=== PATIENT | female | born 1985 | race Hispanic/Latino ===

== ENCOUNTER 2020-12-06 08:03 | Day surgery (SDC) | payer BC ==
--- NOTE | 2020-11-30 16:53 | RAD REPORT ---
EXAM DESCRIPTION: Jazmyn Rich (2 Views)11/30/2020 4:45 pm CLINICAL HISTORY: Pre op COMPARISON: None FINDINGS: The lungs appear clear of acute infiltrate. The heart is normal size IMPRESSION: No acute abnormalities displayed
[2020-11-30 17:27] LABS: ALT/SGPT 30 U/L (12-78); AST/SGOT 25 U/L (15-37); Albumin 3.9 g/dL (3.4-5.0); Alkaline Phosphatase 85 U/L (45-117); Amylase 96 U/L (25-115); BUN Blood Urea Nitrogen 11 mg/dL (7-18); Bicarbonate 29 mmol/L (21-32); Bilirubin Direct < 0.1 mg/dL (0-0.2); Bilirubin Total 0.3 mg/dL (0.2-1.0); Glucose Level 68 mg/dL (74-106); Potassium 3.7 mmol/L (3.5-5.1); Protein, Total 7.6 g/dL (6.4-8.2); Sodium Level 143 mmol/L (136-145)
[2020-11-30 17:43] LABS: Absolute Lymphocytes (CBC) 2.4 K/uL (0.7-4.9); Basophils % 0.6 % (0-1.3); Hematocrit 40.4 % (36.0-45.0); Lymphocytes % 38.1 % (15.3-44.8); MPV 10.9 fL (7.6-11.3); RBC Red Blood Cell Count 4.68 M/uL (3.86-4.86)
--- NOTE | 2020-12-02 13:31 | EKG ---
Test Date: 2020-11-30 Test Time: 16:16:28 Room Service Associate: HA MEASUREMENT RESULTS: Intervals: Rate: 63 LA: 130 QRSD: 74 QT: 380 QTc: 388 [place]: P: 72 LA: 130 QRS: 14 T: 56 INTERPRETIVE STATEMENTS: Normal sinus rhythm Low voltage QRS Borderline ECG No previous ECG available for comparison Electronically Signed On 12-02-20 13:28:31 CREDIT CASHIER by Kj Vargas
--- OUTSIDE RECORDS SUMMARY | 2020-12-06 08:31 | XMS REPORT ---
:1985 Author Organization [facility] Address [address] Mukherjee, [address] [place] [address] Care Team Providers Name Role Phone Chin Unavailable [phone] PROBLEMS Type Condition ICD9-CM [id number] Onset Condition SNOMED Code Notes Code Code Dates Status Problem Depression F32.9 Active 576880630 Problem Malaise and R53.81 Active 750015674 fatigue Problem Allergic rhinitis J30.9 Active 19967813 Problem Iron deficiency D50.8 Active 814182545 anemia secondary to inadequate dietary iron intake Problem Constipation, K59.00 Active 98607653 unspecified constipation type Problem Body mass index Z68.32 Active 963861864 [BMI] 32.0-32.9, adult Problem Vitamin D E55.9 Active 51781599 deficiency Problem Other obesity due 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 Active 780380000 to excess calories Problem Edema R60.9 Active 553291362 Problem Kidney stones N20.0 Active 21160917 Problem GERD without K21.9 Active 640186510 esophagitis Problem Calculus of K80.20 Active 76940745 gallbladder without cholecystitis without obstruction Problem Non-seasonal J30.89 Active 42311775 allergic rhinitis, unspecified trigger ALLERGIES No Known Allergies ENCOUNTERS from 1985 to 2020-11-13 Encounter Location Date Provider Diagnosis [facility] [address] Oct, Rohan Chin Con tinuous RUQ Family Medicine [address] [place], abdomin [place] pain R10.11 [place] [address] and [place] o f gallbladder wit hout cholecystitis w ithout obstruction K80 .20 IMMUNIZATIONS Vaccine Route Administration Date Status Afluria single dose IM Intramuscular Dec 08, 2019 Administere d Kenalog (Triamcinolone) IM Intramuscular March 29, 2020 Adminis tered Kenalog (Triamcinolone) IM Intramuscular Nov 26, 2018 Adminis tered SOCIAL HISTORY Tobacco Use: Social History Observation Description Date Details (start date - stop date) Never Smoker Sex Assigned At : Social History Observation Description Sex Assigned At Unknown Alcohol Screen Question Answer Notes Did you have a drink containing alcohol in Yes the past year? Points 2 Interpretation Negative How often did you have 6 or more drinks on Never (0 points) one occasion in the past year? How many drinks did you have on a typical 1 or 2 (0 points) day when you were drinking in the past year? How often did you have a drink containing Two to four times a month (2 points) alcohol in the past year? Tobacco Use/Smoking Question Answer Notes Are you a never smoker REASON FOR REFERRAL No Information VITAL SIGNS No information MEDICATIONS Medication SIG (Take, Route, Notes Start Date End Date Status Frequency, Duration) Ferrous Sulfate 325 (65 1 tablet Orally BID for Active Fe) MG 30 days Duexis 800-26.6 MG 1 tablet Orally Three Not-Taking times a day PRN PAIN for 30 day(s) Amitiza 24 MCG 1 capsule with food A ctive Orally Twice a day for 30 day(s) Montelukast Sodium 10 MG 1 tablet Orally Once a Active day for 30 day(s) Vitamin D 25 MCG (1000 1 tablet Orally Once a Active UT) day for 30 day(s) PROCEDURES No Information RESULTS No Results REASON FOR VISIT updated ins refer surgeon MEDICAL (GENERAL) HISTORY Type Description Date Medical History Iron deficiency anemia secondary to inad equate dietary iron intake Medical History Malaise and fatigue Medical History Edema Medical History Allergic rhinitis Medical History Depression Medical History Vitamin D deficiency Surgical History No Surgical history information Goals Section No Information Health Concerns No Information MEDICAL EQUIPMENT No Information MENTAL STATUS No Information FUNCTIONAL STATUS No Information ASSESSMENTS Encounter Date Diagnosis Assessment Notes Treatment Notes Treatm ent Clinical Notes Oct, Continuous RUQ abdominal pain (ICD-10 - R10.11) Oct, [place] of gallbladder without cholecystitis without obstruction (ICD-10 - K80.20) PLAN OF TREATMENT Medication Medication Name Sig Start Date Stop Date Amitiza 24 MCG 1 capsule with food Orally Twice a day for 30 day(s) Ferrous Sulfate 325 (65 Fe) MG 1 tablet Orally BID for 30 days Insurance Providers Payer Name Payer Payer Insured Name Patient Coverage Covera ge End Address Phone Relationship to Start Date Eliu e Insured [employer] [phone] Ros Schneider self 2016 and Ti [id number] [address] [place] [id number]
--- OUTSIDE RECORDS SUMMARY | 2020-12-06 08:31 | XMS REPORT | Continuity of Care Document ---
:1985 Author Organization [facility] t Address [address] [place] [address] Care Team Providers Name Role Phone Pcp, Does Not Have A Attending Clinician Lab, Fam Pob I Attending Clinician Unavailable Doctor Unassigned, Name Attending Clinician Unavailable Andi Noe MD Attending Clinician Problems This patient has no known problems. Allergies, Adverse Reactions, Alerts This patient has no known allergies or adverse reactions. Medications Ordered Filled Start Stop Current Ordering Indication Dosage Frequency Signature Comments Components Source Medication Medication Date Date Medication? Clinician (SIG) Name Name Montelukast Montelukast Yes Rohan [address] [facility] Sodium Sodium 5-13 [facility] Amitiza Amitiza 2019- No Rohan [address] [facility] 5-30 11-26 Chin with food [facility] Ferrous Ferrous Yes Rohan [address] [facility] Sulfate Sulfate [facility] Duexis Duexis Yes Rohan [facility] Vitamin D Vitamin D Yes Rohan [address] [facility] Immunizations Ordered Filled Immunization Date Status Comments Sourc e Immunization Name Name Piotr single dose Piotr single dose 2019-12-[address] [facility] Procedures This patient has no known procedures. Encounters Start End Encounter Admission Attending Care Care Encounter Source Date/Time Date/Time Type Type Clinicians Facility Department ID 2020-11-13 2020-11-13 [id number] 2020-09-28 2020-09-28 [facility] [id number] [facility] 2020-09-19 2020-09-19 [facility] [id number] [facility] 2020-08-23 2020-08-23 [facility] [id number] [facility] 2020-08-23 2020-08-23 [facility] [id number] [facility] 2020-06-11 2020-06-11 Telephone Pcp, TIKI [id number] 00:00:00 00:00:00 Patient LOULOU [id number] Does Not HOSPITAL 4.2.7.2.686 Have A [id number] 2020-06-09 2020-06-09 Laboratory Lab, Adc [facility] [id number] 14:00:29 14:20:29 Only Fam Pob I Health [id number] [place] 4.2.7.2.686 Professio [id number] nal 044 Office Building One 2020-06-09 2020-06-09 Letter Doctor TIKI [id number] 00:00:00 00:00:00 (Out) Unassigned, LOULOU [id number] [place] [facility] [id number] 2020-05-26 2020-05-26 [facility] [id number] [address] 10:00:00 10:00:00 t [place] - Drive [facility] Medicine l Medicine Outpati ent Clinics 2020-03-29 2020-03-29 [facility] [id number] 11:28:00 11:28:00 t [place] [employer] s - Drive [facility] l Medicine Outpati ent Clinics 2020-03-29 2020-03-29 [facility] [id number] 10:31:00 10:31:00 t [place] [employer] s - Drive [facility] l Medicine Outpati ent Clinics 2020-03-29 2020-03-29 [facility] [id number] 10:00:00 10:00:00 t [place] - Full Circle [employer] [facility] Medicine Outpati ent Clinics 2020-03-28 2020-03-28 [facility] [id number] 15:54:00 15:54:00 t [place] - [employer] [facility] l Medicine Outpati ent Clinics 2020-03-16 2020-03-16 [facility] [id number] 16:00:00 16:00:00 t [place] - [employer] [facility] l Medicine Outpati ent Clinics 2020-02-09 2020-02-09 [facility] [id number] 08:15:00 08:15:00 t [place] - Drive [facility] Medicine Outpati ent Clinics 2019-12-08 2019-12-08 [facility] [id number] 16:30:00 16:30:00 t [place] - Drive [facility] l Medicine Outpati ent Clinics 2019-09-29 2019-09-29 [facility] [id number] 16:15:00 16:15:00 t [place] [employer] s - Drive [facility] Medicine Outpati ent Clinics 2019-09-02 2019-09-02 [facility] [id number] 16:00:00 16:00:00 t [employer] s - Full Circle [employer] [facility] Medicine Outpati ent Clinics 2019-06-15 2019-06-[address] [facility] [id number] 09:29:50 08:49:58 Visit [facility] [id number] Andi [facility] 4.2.7.2.686 [facility] [id number] [facility] 204 2019-06-15 2019-06-15 Orders Doctor TIKI [id number] 00:00:00 00:00:00 Only Unassigned, LOULOU [id number] [place] [facility] [id number] 2019-06-07 2019-06-07 [facility] [id number] 15:20:00 15:20:00 t [employer] s - Full [employer] [facility] Outpati ent Clinics 2019-06-04 2019-06-04 Orders Doctor [place] [id number] 00:00:00 00:00:00 Only Unassigned, LOULOU [id number] [place] [facility] 4.2.7.2.686 [id number] 2019-05-25 2019-05-25 [facility] [id number] 08:16:00 08:16:00 t [employer] s - Full Circle [employer] [facility] Medicine Outpati ent Clinics 2019-05-21 2019-05-21 [facility] [id number] 13:00:00 13:00:00 t Specialty/U Jenny kes - Specialty rology [facility] a [facility] l Clinic Outpati ent Clinics 2019-05-14 2019-05-14 [facility] [id number] [facility] 11:24:00 11:24:00 t [place] s - [employer] [facility] Medicine Outpati ent Clinics 2019-03-22 2019-03-22 [facility] [id number] 16:40:00 16:40:00 t [place] s - [employer] [facility] l Medicine Outpati ent Clinics 2019-01-12 2019-01-12 [facility] [id number] [facility] 16:00:00 16:00:00 t [place] s - [employer] [facility] Medicine Outpati ent Clinics 2019-01-07 2019-01-07 [facility] [id number] 08:37:00 08:37:00 t [place] s - [employer] [facility] Medicine Outpati ent Clinics 2018-11-26 2018-11-26 [facility] [id number] 15:45:00 15:45:00 t [employer] s - Full Circle [employer] [facility] Medicine Outpati ent Clinics 2018-06-25 2018-06-25 [facility] [id number] 15:30:00 15:30:00 t [employer] s - Full [employer] [facility] Medicine Outpati ent Clinics 2018-03-23 2018-03-23 [facility] [id number] 11:12:00 11:12:00 t [employer] s - Full Circle [employer] [facility] Medicine Outpati ent Clinics Results This patient has no known results.
--- OUTSIDE RECORDS SUMMARY | 2020-12-06 08:31 | XMS REPORT ---
:1985 Author Organization [facility] Address [address] Mukherjee, [address] [place] [address] Care Team Providers Name Role Phone Chin Unavailable [phone] PROBLEMS Type Condition ICD9-CM [id number] Onset Condition SNOMED Code Notes Code Code Dates Status Problem Depression F32.9 Active 967966190 Problem Malaise and R53.81 Active 005823320 fatigue Problem Allergic rhinitis J30.9 Active 21884458 Problem Iron deficiency D50.8 Active 121195755 anemia secondary to inadequate dietary iron intake Problem Constipation, K59.00 Active 11662186 unspecified constipation type Problem Body mass index Z68.32 Active 590621895 [BMI] 32.0-32.9, adult Problem Vitamin D E55.9 Active 42448529 deficiency Problem Other obesity due E66.09 Active 310517389 to excess calories Problem Edema R60.9 Active 409072630 Problem Kidney stones N20.0 Active 19151494 Problem GERD without K21.9 Active 094907475 esophagitis Problem Calculus of K80.20 Active 61277885 gallbladder without cholecystitis without obstruction Problem Non-seasonal J30.89 Active 34984238 allergic rhinitis, unspecified trigger ALLERGIES No Known Allergies ENCOUNTERS from 1985 to 2020-09-19 Encounter Location Date Provider Diagnosis [facility] [address] [place] Sep, Rohan Chin Vit echevarria D deficiency Family Medicine [address], E55.9 [place] [address] gallbladder wi thout cholecystitis w ithout obstruction K80 .20 ; Iron deficiency anemia secondary to inadequate diet raina iron intake D50 .8 ; GERD without esophagitis K21 .9 ; Constipation, unspecified constipation ty pe K59.00 ; Malais e and fatigue R53.81 ; Acne vulgaris L70.0 ; Noncompliance w/medication tr eatment due to intermit use of medication Z91. 14 ; Other obesity d ue to excess calories E66.09 and Body mass i ndex [BMI] 32.0-32.9 , adult Z68.32 IMMUNIZATIONS Vaccine Route Administration Date Status Afluria [...] REASON FOR REFERRAL No Information VITAL SIGNS Height 62 in Sep, Weight 175 lbs Sep, BMI 32 kg/m2 Sep, MEDICATIONS Medication SIG (Take, Route, Start Date End Date Status Frequency, Duration) Ferrous Sulfate 325 (65 Fe) 1 tablet Orally BID for 30 Active MG days Duexis 800-26.6 MG 1 tablet Orally Three Not-Taking times a day PRN PAIN for 30 day(s) Amitiza 24 MCG 1 capsule with food Orally Active Twice a day for 30 day(s) Montelukast Sodium 10 MG 1 tablet Orally Once a day Active for 30 day(s) Vitamin D 25 MCG (1000 UT) 1 tablet Orally Once a day Active for 30 day(s) PROCEDURES No Information RESULTS No Results REASON FOR VISIT Follow up with lab/s MEDICAL (GENERAL) HISTORY Type Description Date Medical [...] STATUS No Information ASSESSMENTS Encounter Date Diagnosis Notes Sep, Vitamin D deficiency (ICD-10 - E55.9) Sep, Iron deficiency anemia secondary to inad equate dietary iron intake (ICD-10 - D50.8) Sep, Calculus of gallbladder without cholecys titis without obstruction (ICD-10 - K80.20) Sep, Noncompliance w/medication treatment due to intermit use of medication (ICD-10 - Z91.14) Sep, Body mass index [BMI] 32.0-32.9, adult ( ICD-10 - Z68.32) Sep, Other obesity due to excess calories (IC D-10 - E66.09) Sep, Constipation, unspecified constipation t ype (ICD-10 - K59.00) Sep, GERD without esophagitis (ICD-10 - K21.9 ) Sep, Acne vulgaris (ICD-10 - L70.0) Sep, Malaise and fatigue (ICD-10 - R53.81) PLAN OF TREATMENT Medication Medication Name Sig Start Date Stop Date Amitiza 24 MCG 1 capsule with food Orally Twice a day for 30 day(s) Ferrous Sulfate 325 (65 Fe) MG 1 tablet Orally BID for 30 days Treatment Notes Assessment Notes Clinical Notes Vitamin D deficiency Start OTC daily supplements: 8458-0357 IU. , Discussed on causes of Vit D Def. Increase sunlight + Hydration + Exercise + Food High in Vit D and OTC supplements. Calculus of gallbladder without Referral to general surgeon for cholecystitis without obstruction further evaluation. Educa tion given. Iron deficiency anemia secondary to STRONGLY ENCOURAGED ON C OMPLIANCE> inadequate dietary iron intake EDUCATION GIVEN> Patient vera blized understanding. Denies any symptoms besides Fatigue. Encouraged to get slow iron plus vitamin C with low GI symptoms. GERD without esophagitis . Discussed differential diagnosis. Consider kiob-wbr-ijkffcy PPI usage. make dietary changes. Constipation, unspecified Change to Amitiza. Samples given. constipation type Side effect panel discussed. Education given. Increase hydration + Fiber + Exercise. Acne vulgaris Managed by dermatology on doxycycline. Education given Noncompliance w/medication Encouraged on compliance. treatment due to intermit use of medication Body mass index [BMI] 32.0-32.9, Actively listened. Support given. adult Counseling given. Education given. Utilized the 5-A''s approach to increase patient motivation and behavioral change. ASK: Patient expressed desire/readiness to change and permission was obtained to discuss. ASSESS: BMI class discussed. In addition, patient''s barrier to weight loss and identified drivers and complications. ADVISE: Discussed benefits of modest weight loss and long-term strategy as well. Educated on risks and complications of obesity on health. Treatment options were discussed including but not limited to non-surgical (medications, gym, diet/exercise) and surgical options. AGREE: Realistic weight-loss goal discussed. Behavioral goals done. Patient agreed with treatment plan. ASSIST: Provided education and resources. Plan made to address drivers and barriers. Close follow-up arranged. START: Walking daily, reducing soda and increased hydration with water of at least 64 ounces. Weight has been followed. At least 15 minutes were spent counseling. Next Appt Details 3 Months WELLNESS + LABS Reason: Insurance Providers Payer Name Payer Payer Insured Name Patient Coverage Covera ge End Address Phone Relationship to Start Date Eliu e Insured [employer] [phone] Ros Schneider self 2016 [place] [id number] [address] [place] [phone]
--- OUTSIDE RECORDS SUMMARY | 2020-12-06 08:31 | XMS REPORT ---
:1985 Author Organization [facility] Address [address] [place] [address] Care Team Providers Name Role Phone Chin Unavailable [phone] PROBLEMS Type Condition ICD9-CM [id number] Onset Condition SNOMED Code Notes Code Code Dates Status Problem Depression F32.9 Active 189160002 Problem Malaise and R53.81 Active 724735979 fatigue Problem Allergic rhinitis J30.9 Active 35670541 Problem Iron deficiency D50.8 Active 011841771 anemia secondary to inadequate dietary iron intake Problem Constipation, K59.00 Active 85908454 unspecified constipation type Problem Body mass index Z68.32 Active 877781001 [BMI] 32.0-32.9, adult Problem Vitamin D E55.9 Active 33017960 deficiency Problem Other obesity due E66.09 Active 602479679 to excess calories Problem Edema R60.9 Active 735897903 Problem Kidney stones N20.0 Active 96260641 Problem GERD without K21.9 Active 369540893 esophagitis Problem Calculus of K80.20 Active 71892145 gallbladder without cholecystitis without obstruction Problem Non-seasonal J30.89 Active 11442654 allergic rhinitis, unspecified trigger ALLERGIES No Known Allergies ENCOUNTERS from 1985 to 2020-09-29 Encounter Location Date Provider Diagnosis [facility] [address], [place] [address] IMMUNIZATIONS Vaccine Route Administration Date Status Afluria [...] No information MEDICATIONS Medication SIG (Take, Route, Start Date [...] Information RESULTS No Results REASON FOR VISIT +Covid, cough MEDICAL (GENERAL) HISTORY Type Description Date Medical [...] No Information FUNCTIONAL STATUS No Information ASSESSMENTS No Information PLAN OF TREATMENT Medication Medication Name Sig [...] [phone] Ros Schneider self 2016 [place] Ti [id number] [address] [place] [phone]
[2020-12-06] MEDS ORDERED: CEFOXITIN/SWI 1gm 1 GM/10 ML SYR ONE (08:49)
[2020-12-06] MEDS ORDERED: Ringers Lactate 1,000 ML IV ONE (08:49)
[2020-12-06] MEDS ORDERED: propofoL 200 MG/20 ML VIAL IV ONE (09:30)
[2020-12-06] MEDS ORDERED: dexAMETHasone 10 MG/ML VIAL ONE (09:30)
[2020-12-06] MEDS ORDERED: MIDAZOLAM HCL 2 MG/2 ML INJ ONE (09:30)
[2020-12-06] MEDS ORDERED: FENTANYL CITR 100 MCG/2 ML ONE ×2 (09:30→10:12)
[2020-12-06] MEDS ORDERED: ROCURONIUM 50 MG/5 ML VIAL IV ONE (09:31)
[2020-12-06] MEDS ORDERED: ONDANSETRON 4 MG/2 ML VIAL ONE (09:31)
[2020-12-06] MEDS ORDERED: LIDOCAINE 1% MPF 5 ML VIAL ONE (09:31)
[2020-12-06] MEDS ORDERED: NEOSTIGMINE 1 MG/ML -5 ML ONE (10:24)
[2020-12-06] MEDS ORDERED: GLYCOPYRROLATE 0.2 MG/ML SYR ONE (10:24)
[2020-12-06] MEDS ORDERED: KETOROLAC 30 MG/ML INJ ONE (10:24)
[2020-12-06 10:36] VITALS: O2SAT 100
[2020-12-06] MEDS: HYDROMORPHONE HCL 1 MG/ML INJ ONE ×2 (10:40→10:45)
[2020-12-06] MEDS: MEPERIDINE HCL 25 MG/ML SYR ONE ×2 (10:50→10:54)
--- NOTE | 2020-12-06 10:57 | OP ---
Date of Procedure: 12/06/2020 Surgeon: Thomas Cabrales MD Refrigeration Engineer: ERMELINDA Miller. Preoperative Diagnoses: Chronic cholecystitis and cholelithiasis. Postoperative Diagnoses: Chronic cholecystitis and cholelithiasis. Procedure: Laparoscopic cholecystectomy. Estimated Blood Loss: Minimal. Specimen: Gallbladder. Finding: As above. Anesthesia: General. Complications: None. Disposition: The patient tolerated the procedure in stable condition and taken to Recovery in good g eneral condition. Procedure In Detail: The patient was brought to the OR and placed in prone position. General anesth esia was begun. The patient was prepped and draped in usual sterile fashion. Marcaine 0.5% was infi ltrated locally. A 15-blade was used to make a 1 cm infraumbilical midline incision. Subcutaneous t issue was divided. Fascia was identified and divided. #1 Vicryl stay suture was placed. Peritoneal cavity was entered with a sharp and blunt dissection. 12 mm trocar was placed into the peritoneal c avity under direct vision. Pneumoperitoneum was established. Then, three 5 mm trocars placed, one i n the epigastrium just to the right of midline and two in the right subcostal region. Laparoscopy re vealed chronic inflammation of the gallbladder. Fundus retracted superiorly. Infundibulum identifie d and retracted inferolaterally. Cystic duct and cystic artery were clearly identified with blunt di ssection. Clips were placed. Both structures were divided. Cautery used to remove the gallbladder from the liver bed. Bleeding on the liver bed was controlled with cautery. Gallbladder was retrieve d through the umbilicus via an EndoCatch bag. Right upper quadrant was irrigated. Effluent was donny r. No evidence of bleeding or bile leakage appreciated. Subsequently, all trocars were removed unde r direct vision. Stay sutures were tied to each other to approximate the fascial defect. Subcutaneo us wounds were irrigated. Bleeding was controlled with cautery. A 3-0 chromic was used to reapproxi mate the subcutaneous tissue and close the skin. Sterile dressing was applied. The patient was awak ened and taken to Recovery in good general condition. Discharge Note: The patient will go to Day Surgery and home when stable. Disposition: Home. Condition: Stable. Discharge Instructions: Resume home medications and diet. Activity as tolerated. No heavy lifting. Remove outer dressing in 2 days. Shower. Keep wound clean and dry. Keep Steri-Strips on at all t imes. Follow up in my office in 1 week. Call for appointment. Tylenol No. 3 one tablet p.o. q.4 p. r.n. pain. Incentive spirometry as ordered. /MODL Voice ID: [id number] Report ID: [id number]
[2020-12-06] MEDS ORDERED: HYDROCODONE/APAP 7.5/325 MG TAB ONE (11:44)
[2020-12-06 12:23] VITALS: BP 121/74; TEMP 97.2
== END 2020-12-06 12:55 | disposition home or self-care (01) ==
LOC: OR 08:03
PROVIDERS: ATTEND Surgery
PROC: 0FT44ZZ Resection of Gallbladder, Percutaneous Endoscopic Approach (ICD-10-PCS; principal; 2020-12-06 09:00)
DX: K80.10 Calculus of gallbladder with chronic cholecystitis without obstruction (principal); Z20.822 Contact with and (suspected) exposure to COVID-19
CPT/HCPCS: 93005; 85025; 80048; 36415; 82150; 81025; 80076; 88304; 71046; 47562; U0002; J2704; J2250; J3010 ×2; J1100; J2175; J1170; J2710; J7120; J2405

== ENCOUNTER 2025-01-31 08:21 | Emergency (ER) | payer BC ==
[2025-01-31] MEDS ORDERED: DIPHENHYDRAMINE 50 MG/ML VIAL ONE ×2 (08:57→11:28)
[2025-01-31] MEDS ORDERED: CEFTRIAXONE 1000 MG/VIAL ONE (08:57)
[2025-01-31] MEDS ORDERED: dexAMETHasone 10 MG/ML VIAL ONE (08:57)
[2025-01-31] MEDS ORDERED: FAMOTIDINE 20 MG/2 ML VIAL IV ONE (08:57)
[2025-01-31] MEDS ORDERED: NA CHLORIDE 0.9% 1,000 ML ONE (08:57)
[2025-01-31] MEDS ORDERED: KETOROLAC 30 MG/ML INJ ONE (08:57)
[2025-01-31] MEDS ORDERED: NA CHLORIDE 0.9% 50 ML ONE (08:58)
[2025-01-31 09:04] LABS: Specific Gravity 1.023 (1.005-1.030); Urine Bacteria <20 /HPF (<20); Urine Bilirubin NEGATIVE (Negative); Urine Blood 2+ (Negative); Urine Clarity Extremely Turbid (Clear); Urine Color Yellow (Yellow); Urine Culture Reflex Order REFLEXED; Urine Glucose NEGATIVE (Negative); Urine Ketones NEGATIVE (Negative); Urine Microscopic Reflex YN ORDER UMIC; Urine Mucus 1+ /HPF (None Seen); Urine Nitrite NEGATIVE (Negative); Urine Protein TRACE (Negative); Urine Urobilinogen Normal (Normal); Urine pH 5.5 (5.0-7.0)
[2025-01-31 09:34] LABS: Absolute Eosinophils 0.2 K/uL (0-0.5); Absolute Lymphocytes (CBC) 0.5 K/uL (0.7-4.9); Absolute Monocytes 0.2 K/uL (0.1-1.3); Absolute Neutrophil 2.9 K/uL (1.8-8.0); Eosinophils % 5.4 % (0-4.4); Hematocrit 35.7 % (36.0-45.0); Hemoglobin 12.2 g/dL (12.0-15.0); Lymphocytes % 14.1 % (15.3-44.8); MCHC 34.2 g/dL (32.0-36.0); MCV 87.7 fL (80-100); MPV 9.1 fL (7.6-11.3); Monocytes % 4.5 % (3.3-12.3); Platelets 184 thou/uL (152-406); RBC Red Blood Cell Count 4.07 M/uL (3.86-4.86); Red Cell Distribution Width 14.1 % (12.1-15.2)
[2025-01-31 10:53] LABS: Specific Gravity 1.011 (1.005-1.030)
--- NOTE | 2025-01-31 10:55 | EDPHYS ---
Physician Documentation [facility] Name: Ros Schneider Age: 39 yrs Sex: Female : 1985 Arrival Date: 01/31/2025 Time: 08:21 Bed 16 Private MD: ED Physician Juan Alberto Bejarano HPI: 01/31 08:49 This 39 yrs old Female presents to ER via Ambulatory with complaints of Rash. dr5 08:49 The patient's rash thought to be caused by medication. The rash is located on the body dr5 diffusely. The rash can be described as macular, papular, urticarial. Patient is a 39-year-old female with history of kidney stone coming in with generalized rash that started last night. Patient reports that she has a nephrostomy tube in the right kidney and being managed by urology for a 10 mm stone and is currently on Bactrim. Patient reports that she has an appointment on the th of this month for surgery.. 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 - Infectious Disease History:: Denies. - Social history:: Smoking status: unknown. ROS: 09:04 Constitutional: as per hpi dr5 Exam: 09:04 Constitutional: This is a well developed, well nourished patient who is awake, alert, dr5 and in no acute distress. Head/Face: Normocephalic, atraumatic. Eyes: Pupils equal round and reactive to light, extra-ocular motions intact. Lids and lashes normal. Conjunctiva and sclera are non-icteric and not injected. Cornea within normal limits. Periorbital areas with no swelling, redness, or edema. Neck: Trachea midline, no thyromegaly or masses palpated, and no cervical lymphadenopathy. Supple, full range of motion without nuchal rigidity, or vertebral point tenderness. No Meningismus. Chest/axilla: Normal chest wall appearance and motion. Nontender with no deformity. No lesions are appreciated. Cardiovascular: Regular rate and rhythm with a normal S1 and S2. Normal PMI, no JVD. No pulse deficits. Respiratory: Lungs have equal breath sounds bilaterally, clear to auscultation. No rales, rhonchi or wheezes noted. No increased work of breathing, no retractions or nasal flaring. Back: No spinal tenderness. No costovertebral tenderness. Full range of motion. MS/ Extremity: Pulses equal, no cyanosis. Neurovascular intact. Full, normal range of motion. Neuro: Awake and alert, GCS 15, oriented to person, place, time, and situation. Cranial nerves II-XII grossly intact. Motor strength 5/5 in all extremities. Sensory grossly intact. Cerebellar exam normal. Normal gait. 09:04 Skin: rash a moderate rash is noted, drug rash, urticaria, and is diffusely located, Vital Signs: 08:32 BP 115 / 80; Pulse 96; Resp 17; Temp 99.1(O); Pulse Ox 100% on R/A; Weight 73.94 kg; ss Height 5 ft. 3 in. ; 08:32 Body Mass Index 28.87 (73.94 kg, 160.02 cm) ss MDM: 08:44 Medical Screening Exam initiated dr5 09:04 Differential diagnosis: allergic reaction, UTI, Pyelonephritis. Data reviewed: vital dr5 signs, nurses notes. I considered the following discharge prescriptions or medication management in the emergency department Medications were administered in the Emergency Department. See JAN. 09:54 ED course: Patient completed [facility] appointment with her doctor at 8:50. He dr5 recommended patient get 1 g of Rocephin IV and he will send a prescription in for Augmentin after test was completed in ER. Patient received fluids and Rocephin. Will print all records out for patient to take to ask Will give patient's steroid Dosepak, Pepcid, and Zofran for rash. Recommended to stop taking Bactrim and change to Augmentin per her doctor's request. She will keep her appointment on 02/10/25 for further management.. 11:01 ED course: Patient not . 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 Rash has improved and patient feeling better. Strict ER precautions given and to return for worsening symptoms. All questions answered.. 01/31 08:33 Order name: Urinalysis w/ reflexes; Complete Time: 09:05 dr5 01/31 08:56 Order name: CBC with Diff; Complete Time: 09:36 dr5 01/31 08:56 Order name: BMP; Complete Time: 09:49 dr5 01/31 09:07 Order name: Urine Culture EDNV 01/31 09:30 Order name: Test, Urine; Complete Time: 10:54 ap3 Administered Medications: 08:33 CANCELLED (Inappropriate at this time): dexamethasone1 mg/kg IVP once; (not to exceed dr5 40 mg) 09:28 Drug: Rocephin IV 1 grams IV at per protocol once; Given slow IV push per pharmacy ap3 instructions Route: IV; Rate: per protocol; Site: right antecubital; 09:50 Follow up: Response: No adverse reaction; IV Status: Completed infusion ss 09:28 Drug: Ketorolac IVP 15 mg IVP once Route: IVP; Site: right antecubital; ap3 12:14 Follow up: Response: No adverse reaction ss 09:29 Drug: NS 0.9% IV 1000 ml IV at 1000 ml once; to be given as a bolus over 60 minutes ap3 Route: IV; Rate: 1000 ml; Site: right antecubital; 11:00 Follow up: IV Status: Completed infusion; IV Intake: 1000ml ss 09:29 Drug: diphenhydrAMINE IVP 12.5 mg IVP once Route: IVP; Site: right antecubital; ap3 09:40 Follow up: Response: No adverse reaction; No adverse reaction, moderate relief from ss symptoms 09:29 Drug: Famotidine IVP 20 mg IVP once; dilute with 10 mL 0.9% NaCl; give over 2 minutes ap3 Route: IVP; Site: right antecubital; 12:14 Follow up: Response: No adverse reaction; Marked relief of symptoms ss 09:29 Drug: Dexamethasone IVP 10 mg IVP once; (not to exceed 40 mg) Route: IVP; Site: right ap3 antecubital; 12:13 Follow up: Response: No adverse reaction; Marked relief of symptoms ss 11:36 Drug: diphenhydrAMINE IVP 25 mg IVP once Route: IVP; Site: right antecubital; aa5 12:14 Follow up: Response: No adverse reaction; Marked relief of symptoms ss Disposition: 14:05 I was immediately available on-site in the Emergency Department for consultation in the ms3 care of the patient. Disposition Summary: 01/31/25 10:55 Discharge Ordered Notes: Location: Home dr5 Condition: Stable dr5 Diagnosis - UTI/ Urinary tract infection, site not specified dr5 Followup: dr5 - With: Emergency Department - When: As needed - Reason: Worsening of condition Followup: dr5 - With: Private Physician - When: 1 - 2 days - Reason: Recheck today's complaints, Continuance of care, Re-evaluation by your physician Discharge Instructions: - Discharge Summary Sheet dr5 - Rash, Adult dr5 - Urinary Tract Infection, Adult, [id number] dr5 Forms: - Work release form dr5 - Medication Reconciliation Form dr5 - Antibiotic Education dr5 - Patient Portal Instructions dr5 - Leadership Thank You Letter dr5 Prescriptions: - Zofran 4 mg Oral Tablet - take 1 tablet ORAL route every 12 hours As needed; 20 tablet; Refills: 0, dr5 Product Selection Permitted - Medrol (Krystian) 4 mg Oral Tablets, Dose Pack - take 1 tablet ORAL route as directed - follow package instructions; 1 packet; dr5 Refills: 0, Product Selection Permitted - Pepcid 20 mg Oral Tablet - take 1 tablet ORAL route once daily; 20 tablet; Refills: 0, Product Selection dr5 Permitted Signatures: Dispatcher [employer] EDNia Granado RN RN aa5 Anne Johnson RN RN ss Olga Gonzalez RN RN ap3 Juan Alberto Bejarano DO DO ms3 Adam Grady, GURVINDER-C [employer]GER INSULATION-Cdr5 Corrections: (The following items were deleted from the chart) 08:33 08:33 Dexamethasone IVP 1 mg/kg IVP once; (not to exceed 40 mg) ordered. dr5 dr5 08:35 08:34 Allergies: No Known Allergies; ss ss
--- NOTE | 2025-01-31 10:55 | ER ---
Nurse's Notes [facility] Name: Ros Schneider Age: 39 yrs Sex: Female : 1985 Arrival Date: 01/31/2025 Time: 08:21 Bed 16 Private MD: Diagnosis: UTI/ Urinary tract infection, site not specified Presentation: 01/31 08:32 Chief complaint: Patient states: Rash all over arms and legs that is climbing to neck ss that began yesterday. Coronavirus screen: Client denies travel out of the [place] in the last 14 days. Ebola Screen: Patient denies exposure to infectious person. Patient denies travel to an Ebola-affected area in the 21 days before illness onset. Initial Sepsis Screen: Does the patient meet any 2 criteria? No. Patient's initial sepsis screen is negative. Does the patient have a suspected source of infection? No. Patient's initial sepsis screen is negative. Risk Assessment: Do you want to hurt yourself or someone else? Patient reports no desire to harm self or others. Onset of symptoms was January 30, 2025. 08:32 Method Of Arrival: Ambulatory ss 08:32 Acuity: ANGELO 3 ss Triage Assessment: 08:34 General: Appears uncomfortable, Behavior is calm, cooperative, quiet, Denies fever. ss General: red, raised rash that began yesterday. worse today. Neuro: Level of Consciousness is awake, alert, obeys commands, Oriented to person, place, time, situation. Respiratory: Airway is patent Respiratory effort is even, unlabored, Respiratory pattern is regular, symmetrical. Derm: Skin is pink, warm \T\ dry. normal. 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 - Infectious Disease History:: Denies. - Social history:: Smoking status: unknown. Screenin:40 [facility] ED Fall Risk Assessment (Adult) History of falling in the last 3 months, ap3 including since admission No falls in past 3 months (0 pts) Confusion or Disorientation No (0 pts) Intoxicated or Sedated No (0 pts) Impaired Gait No (0 pts) Mobility Assist Device Used No (0 pt) Altered Elimination No (0 pt) Score/Fall Risk Level 0 - 2 = Low Risk Oriented to surroundings, Maintained a safe environment, Educated pt \T\ family on fall prevention, incl call for assistance when getting out of bed, Assessed \T\ reinforced patient's understanding of fall precautions, Hourly rounding (assess needs \T\ fall precautionary measures) done, Used ambulatory aids as needed (educated on \T\ assisted with). Abuse screen: Denies threats or abuse. Nutritional screening: No deficits noted. Tuberculosis screening: No symptoms or risk factors identified. Assessment: 09:38 General: Appears comfortable, Behavior is calm, cooperative, appropriate for age. Pain: ap3 Denies pain. Neuro: Level of Consciousness is awake, alert, obeys commands, Oriented to person, place, time, situation, Appropriate for age. Cardiovascular: Patient's skin is warm and dry. Respiratory: Airway is patent Respiratory effort is even, unlabored, Respiratory pattern is regular, symmetrical. : nephrostomy tube. 12:09 Reassessment: Patient appears in no apparent distress at this time. Patient and/or ss family updated on plan of care and expected duration. Pain level reassessed. Patient is alert, oriented x 3, equal unlabored respirations, skin warm/dry/pink. Rash seems to have improved some after medication administration. Pt reports she feels ok to go home at this time. Still c/o itching to rash on arms. FERNANDO Medina states ok to discharge at this time. Respiratory: Airway is patent Respiratory effort is even, unlabored, Respiratory pattern is regular, symmetrical. Vital Signs: 08:32 BP 115 / 80; Pulse 96; Resp 17; Temp 99.1(O); Pulse Ox 100% on R/A; Weight 73.94 kg; ss Height 5 ft. 3 in. ; 08:32 Body Mass Index 28.87 (73.94 kg, 160.02 cm) ED Course: 08:22 Patient arrived in ED. mr 08:23 Adam Gr[facility]C [facility] 08:23 Juan Alberto Bejarano DO is Attending Physician. dr5 08:34 Triage completed. ss 08:34 Arm band placed on right wrist. ss 08:44 Olga Gonzalez, RN is Primary Nurse. ap3 09:30 Inserted saline lock: 22 gauge in right antecubital area, using aseptic technique. ap3 Blood collected. Flushed with 10 mL NS. 09:40 No provider procedures requiring assistance completed. ap3 09:41 Patient has correct armband on for positive identification. Provided Education on: ap3 medications prior to arrival. 12:09 IV discontinued, intact, bleeding controlled, No redness/swelling at site. Pressure ss dressing applied. Administered Medications: 08:33 CANCELLED (Inappropriate at this time): dexamethasone1 mg/kg IVP once; (not to exceed dr5 40 mg) 09:28 Drug: Rocephin IV 1 grams IV at per protocol once; Given slow IV push per pharmacy ap3 instructions Route: IV; Rate: per protocol; Site: right antecubital; 09:50 Follow up: Response: No adverse reaction; IV Status: Completed infusion ss 09:28 Drug: Ketorolac IVP 15 mg IVP once Route: IVP; Site: right antecubital; ap3 12:14 Follow up: Response: No adverse reaction ss 09:29 Drug: NS 0.9% IV 1000 ml IV at 1000 ml once; to be given as a bolus over 60 minutes ap3 Route: IV; Rate: 1000 ml; Site: right antecubital; 11:00 Follow up: IV Status: Completed infusion; IV Intake: 1000ml ss 09:29 Drug: diphenhydrAMINE IVP 12.5 mg IVP once Route: IVP; Site: right antecubital; ap3 09:40 Follow up: Response: No adverse reaction; No adverse reaction, moderate relief from ss symptoms 09:29 Drug: Famotidine IVP 20 mg IVP once; dilute with 10 mL 0.9% NaCl; give over 2 minutes ap3 Route: IVP; Site: right antecubital; 12:14 Follow up: Response: No adverse reaction; Marked relief of symptoms ss 09:29 Drug: Dexamethasone IVP 10 mg IVP once; (not to exceed 40 mg) Route: IVP; Site: right ap3 antecubital; 12:13 Follow up: Response: No adverse reaction; Marked relief of symptoms ss 11:36 Drug: diphenhydrAMINE IVP 25 mg IVP once Route: IVP; Site: right antecubital; aa5 12:14 Follow up: Response: No adverse reaction; Marked relief of symptoms ss Medication: 09:42 VIS not applicable for this client. ap3 Intake: 11:00 IV: 1000ml; Total: 1000ml. Outcome: 10:55 Discharge ordered by . dr5 12:09 Discharged to home ambulatory, with family, ss 12:09 Condition: improved 12:09 Discharge instructions given to patient, family, Instructed on discharge instructions, follow up and referral plans. medication usage, Demonstrated understanding of instructions, follow-up care, medications, Prescriptions given X 2, 12:15 Patient left the ED. Signatures: Lakia Barlow, Reg Reg mr KashmirNia, RN RN aa5 Anne Johnson RN RN Olga Gonzalez RN RN ap3 Adam Grady, QUALITY CONTROL HEAD-C QUALITY CONTROL HEAD-Cdr5 Corrections: (The following items were deleted from the chart) 08:35 08:34 Allergies: No Known Allergies; ss
[2025-01-31 12:40] VITALS: BP 115/80; TEMP 99.1; O2SAT 100
== END 2025-01-31 12:15 | disposition home or self-care (01) ==
LOC: ER 08:21
DX: N39.0 Urinary tract infection, site not specified (principal); R21 Rash and other nonspecific skin eruption; Z87.442 Personal history of urinary calculi
CPT/HCPCS: 96365; 96361; 87088; 85025; 81001; 87086; 80048; 36415; 81025; 96375; 99284; J1200 ×2; J1100; J7030; J0696